=== PATIENT | female | born 1955 | race African-American/Black ===

== ENCOUNTER 2017-06-03 06:03 | Day surgery (SDC) | payer OTHER ==
[~2017-06-03] VITALS: Ht 161.3 cm; Wt 67.9 kg
[2017-06-03] VITALS (12 sets, daily range): BP systolic 92–140; BP diastolic 62–88; PULSE 64–92; RESP 12–38; Ht 161.3 cm; Wt 67.9 kg
[~2017-06-03 06:03] MED LIST: ASPI81TA3 PO; LISI10TA2 PO; TRIA1CAP56 PO
--- NOTE | 2017-06-03 07:45 | HPN ---
Date/Time of Note Date/Time of Note DATE: 06/03/17 TIME: 07:44 Interval H&P Admission Note Pt. seen H&P reviewed: No system changes GLENN CASTELAN DPM Jun 03, 2017 07:45
[2017-06-03] MEDS ORDERED: PROPOFOL 20 ML ONE (07:46)
[2017-06-03] MEDS ORDERED: FENTAnyl 50 MCG/ML VIAL ONE (07:46)
[2017-06-03] MEDS ORDERED: ACETAMINOPHEN 1000MG/100ML IV 100 ML ONE (07:46)
[2017-06-03] MEDS ORDERED: MIDAZOLAM 1 MG/ML 2 ML INJ ONE (07:46)
[2017-06-03] MEDS ORDERED: LIDOCAINE 1% (MDV) 20 ML INJ ONE (07:47)
[2017-06-03] MEDS ORDERED: DEXAMETHASONE 4 MG/ML 1 ML INJ ONE (07:47)
[2017-06-03] MEDS ORDERED: ONDANSETRON 4 MG INJ ONE (07:47)
[2017-06-03] MEDS ORDERED: CEFAZOLIN 1 GM INJ ONE (07:52)
[2017-06-03] MEDS ORDERED: BUPIVACAINE 0.5% (SDV) 30 ML INJ ONE (08:02)
[2017-06-03] MEDS ORDERED: LIDOCAINE 1% (MPF) 30 ML INJ ONE (08:03)
[2017-06-03] MEDS ORDERED: POVIDONE IODINE 10% 28.4 GM OINT ONE (08:03)
[2017-06-03] MEDS ORDERED: HYDROmorphONE 2 MG/ML SYG ONE (08:48)
[2017-06-03] MEDS ORDERED: FENTAnyl 50 MCG/ML VIAL IV PRN ×2 (09:00)
[2017-06-03] MEDS ORDERED: MIDAZOLAM 1 MG/ML 2 ML INJ IV PRN (09:00)
[2017-06-03] MEDS ORDERED: ONDANSETRON 4 MG INJ IV PRN (09:00)
[2017-06-03] MEDS ORDERED: HYDROmorphONE (0.2 MG/ML) 10ML SYG IV PRN ×2 (09:00)
[2017-06-03] MEDS ORDERED: LABETALOL HCL 20MG INJ IV PRN (09:00)
[2017-06-03] MEDS ORDERED: MEPERIDINE 25 MG INJ IV PRN (09:00)
[2017-06-03] MEDS ORDERED: METOCLOPRAMIDE 10 MG INJ IV PRN (09:00)
[2017-06-03] MEDS ORDERED: hydrALAzine 20 MG INJ IV PRN (09:00)
[2017-06-03] MEDS ORDERED: POLYMYXIN/BACITRACIN 1L IRRIG ONE (09:48)
--- NOTE | 2017-06-03 09:56 | SIPON ---
Date/Time of Note Date/Time of Note DATE: 06/03/17 TIME: 09:52 Operative Report Preoperative Diagnosis hallux abducto valgus with bunion, right foot Postoperative Diagnosis same Operation/Procedure Performed osteotomy and bunionectomy with fixation first metatarsal right lorena osteotomy with fixation proximal phalange hallux right Surgeon see signature line pediatric physician assistant none Anesthesia: general Estimated blood loss: minimal Transfusion Required none Specimen bone Grafts/Implants none Complications none GLENN CASTELAN DPM Jun 03, 2017 09:56
--- NOTE | 2017-06-03 13:12 | OPR ---
DATE OF OPERATION: 06/03/2017 PREOPERATIVE DIAGNOSIS: Hallux abductovalgus with bunion deformity, right foot. POSTOPERATIVE DIAGNOSIS: Hallux abductovalgus with bunion deformity, right foot. SURGERY: Osteotomy and bunionectomy with fixation, 1st metatarsal right foot, lorena osteotomy with fixation, proximal phalanx, hallux right foot. SURGEON: Ricky Myers DPM PROCEDURE IN DETAIL: The patient was brought to the surgical suite, placed in the supine position. Patient was under general anesthesia. The patient had cardiac monitoring and had the tourniquet midthigh and patient had findings consistent with the pre and postop diagnosis sterile prep and drape were performed. The 1st incision was a dorsal longitudinal incision over the 1st metatarsophalangeal joint. Using sharp and blunt dissection, the incision was carried deep. The Bovie was used as necessary. The base of the proximal phalanx was freed laterally and remodeled and the head of the 1st metatarsal was freed dorsally, medially, and the medial eminence was resected. An osteotomy was going horizontally from medial to lateral with the apex distal and the base proximal at the 60 degrees from each other and the area was free and the head of the metatarsal was moved laterally, impacted upon the shaft and then the overhang of the shaft was resected. K-wire was placed across the osteotomy site and a screw was placed across that, that was 2.5 mm x 16 mm and then the K-wire was removed. The area was quite fixated as much as the doctor wanted it and so therefore I put in a staple that was 10 x 10 across the osteotomy site and mallet was held solid. The area was cleansed and then it was noted that the lorena osteotomy was needed, so the incision was lengthened and the proximal phalanx shaft was freed of its attachment and an lorena osteotomy with the apex being lateral and the base being medial with a wide dissection being approximately 2.5 mm and the distal was then impacted upon the proximal and this was then fixated using a staple 8 x 8 and the areas were then cleansed. The preoperative condition having been relieved. The EpiFix was then placed over the 1st metatarsal medially and then the subcutaneous tissue was coaptated using 3-0 Vicryl and the skin was coaptated using 5-0 nylon. The area was injected with 0.5 percent Marcaine to prolong anesthesia and a dressing of half-inch Steri-Strips, Betadine ointment, 4x4s impregnated with Betadine, and Keanu with an outer layer of Coban made into a semicompressive dressing. The patient tolerated surgery well and was returned to recovery room in satisfactory condition. There was minimal blood loss and no complications. Dictated By: Ricky Myers DPM /valentin/ella /Document#: [id number]
--- NOTE | 2017-06-03 13:18 | PREOPHP ---
DATE OF ADMISSION: 06/03/2017 HISTORY OF PRESENT ILLNESS: The patient is being admitted to the hospital for elective foot surgery. Palliative treatment unsuccessful. The patient has been explained surgery, complications, alternatives, and elected to have elective foot surgery. The patient is pointing to the bunion on her right foot. ALLERGIES: MOTRIN. MEDICATIONS: High blood pressure medicine. REVIEW OF SYSTEMS: Negative heart, lung, liver, kidney, thyroid. Diabetes negative. Smoke negative. Alcohol occasionally. pertinent history in upper extremities. PHYSICAL EXAMINATION: By Dr. Castillo. LOWER EXTREMITIES: Shows a DP and PT equal regular +3. NEUROLOGICAL: Negative for pathology. DERMATOLOGICAL: Negative for pathology. MUSCULOSKELETAL: On x-ray findings show an hallux abductovalgus with bunion formation, right foot. FINAL DIAGNOSES: Hallux abductovalgus with bunion right foot. Dictated By: Ricky Myers DPM /valentin/ella /Document#: [id number]
== END 2017-06-03 12:25 | disposition home or self-care (01) ==
LOC: SDS 06:03
PROVIDERS: ATTEND Podiatrist
DX: M20.11 Hallux valgus (acquired), right foot (principal); M21.611 Bunion of right foot; I10 Essential (primary) hypertension; Z88.6 Allergy status to analgesic agent
CPT/HCPCS: 28299; 88304; 88311; J0131; J0690; J1100; J1170; J2250; J2405; J3010; L3260; Z7512; Z7610

== ENCOUNTER 2017-06-23 07:24 | Day surgery (SDC) | payer OTHER ==
[2017-06-22 11:19] VITALS: Ht 160 cm; Wt 66.4 kg
[~2017-06-23] VITALS: Ht 160 cm; Wt 66.4 kg
[2017-06-23] VITALS (10 sets, daily range): BP systolic 104–140; BP diastolic 69–90; PULSE 64–90; RESP 13–21
[~2017-06-23 07:24] MED LIST changes: +CEFAZOLIN 2 GM/50 ML (PMX) 50 ML IVPB SCH; +SOD CHLORIDE 0.9% 1,000 ML IV SCH
[2017-06-23] MEDS ORDERED: ACET1TAB40 PO (07:52)
[2017-06-23] MEDS ORDERED: BUPIVACAINE 0.25% (MPF) 10 ML 10 ML VIAL ONE (10:07)
[2017-06-23] MEDS ORDERED: FENTAnyl 50 MCG/ML VIAL ONE (10:13)
[2017-06-23] MEDS ORDERED: PROPOFOL 20 ML ONE (10:13)
[2017-06-23] MEDS ORDERED: LIDOCAINE 2% (SDV) 5 ML INJ ONE (10:13)
[2017-06-23] MEDS ORDERED: MIDAZOLAM 1 MG/ML 2 ML INJ ONE (10:13)
[2017-06-23] MEDS ORDERED: CEFAZOLIN 1 GM INJ ONE (10:29)
[2017-06-23] MEDS ORDERED: METOCLOPRAMIDE 10 MG INJ ONE (10:31)
[2017-06-23] MEDS ORDERED: DEXAMETHASONE 4 MG/ML 1 ML INJ ONE (10:31)
[2017-06-23] MEDS ORDERED: ONDANSETRON 4 MG INJ ONE (10:31)
[2017-06-23] MEDS ORDERED: PHENYLephrine (100 MCG/ML) 5ML SYG ONE (10:50)
--- NOTE | 2017-06-23 10:54 | OPR ---
Date/Time of Note Date/Time of Note DATE: 06/23/17 TIME: 10:51 Operative Report Procedure Date: Jun 23, 2017 Preoperative Diagnosis left upper back mass Postoperative Diagnosis same Operation/Procedure Performed 1. excision of left upper back mass 8 cm mass 8 cm incision 2. localized adjacent tissue transfer with the use of skin flaps16 sq cm defect 3. therapeutic injection of subcutaneous local anesthesia Surgeon see signature line [facility] Supervisor none Anesthesia Type: general Estimated Blood Loss: minimal Transfusion none Specimen left upper back mass Grafts/Implants none Complications none Pt Condition Post Procedure: stable Indications This is a 62-year-old female with a left upper back mass. She requests surgical excision. Risks alternatives benefits and percent were discussed the patient. Patient expresses understanding consents to the operation Procedure Description She is taken to the OR and prepped and draped in usual sterile fashion. Surgical timeout was performed. IV antibiotics were given. Transverse incision is made over the left upper back mass with a 10 blade. Dissection cautery was carried onto the mass. The mass and circumferentially excised using cautery. Due to large tissue defect localized adjacent tissue transfer with these of skin flaps were performed. Multilayer closure with interrupted 3- 0 Vicryl and skin jean paul. Therapeutic subcutaneous local anesthesia was injected throughout the incision site. Dry dressings were applied. Lorrie OSWALD Jun 23, 2017 10:54
[2017-06-23] MEDS ORDERED: HYDROCODONE/APAP (5/325) TAB PO ONE (11:00)
== END 2017-06-23 12:11 | disposition home or self-care (01) ==
LOC: SDS 07:24
PROVIDERS: ATTEND Surgery
DX: D17.1 Benign lipomatous neoplasm of skin and subcutaneous tissue of trunk (principal); I10 Essential (primary) hypertension
CPT/HCPCS: 14001; 88307; J0690; J1100; J2250; J2405; J2765; J3010; Z7512; Z7610; J2370

== ENCOUNTER 2018-06-16 06:18 | Day surgery (SDC) | END 2018-06-16 12:41 | disposition home or self-care (01) ==